=== PATIENT | female | born 2000 | race Caucasian/White ===

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

== ENCOUNTER 2021-01-19 18:15 | Emergency (ER) | payer OTHER, MEDICAID ==
[~2021-01-19] VITALS: Ht 160 cm; Wt 52.2 kg
[~2021-01-19 18:15] MED LIST: ALBUTEROL2.5 MG/31 INH; CLARITIN10 MG PO; MEDROLDOSEPACK PO; PROAIR HFA8.5 GM INH; SYMBICORT80 MCG/4.1 INH
[2021-01-19 18:42] LABS: URINE BILIRUBIN NEGATIVE (Negative); URINE BLOOD 1+ (Negative); URINE CLARITY CLEAR; URINE COLOR YELLOW; URINE GLUCOSE-RANDOM NEGATIVE (Negative); URINE KETONES NEGATIVE (Negative); URINE LEUKOCYTES-REFLEX NEGATIVE (Negative); URINE NITRITE-REFLEX NEGATIVE (Negative); URINE PROTEIN NEGATIVE (Negative); URINE SPECIFIC GRAVITY <= 1.005 (1.005-1.030); URINE UROBILINOGEN 0.2 E.U./dl (0.2-1.0)
[2021-01-19 18:50] LABS: BACTERIA-REFLEX 1-9 Few /HPF (None Seen); CASTS None Seen /LPF (None Seen); CRYSTALS None Seen /LPF (None Seen); SQUAMOUS >10 Many /LPF (0-3)
[2021-01-19 18:51] LABS: URINE RBC 0-2 Rare /HPF (0-2); URINE WBC-REFLEX 0-5 Rare /HPF (0-5); YEAST-REFLEX Present (None Seen)
[2021-01-19 19:49] LABS: HEMATOCRIT 37.9 % (37.0-47.0); HEMOGLOBIN 12.7 gm/dL (12.0-15.0); MCH 29.1 pg (26.0-34.0); MCHC 33.6 g/dL (28.0-37.0); MCV 86.6 fL (80.0-100.0); MPV 7.8 fl. (7.2-11.1); RBC 4.37 mil/uL (4.20-5.00); RDW-CV 12.8 % (10.5-14.5); WBC 5.4 thou/uL (4.0-11.0)
[2021-01-19 19:58] LABS: CALCIUM 9.3 mg/dL (8.5-10.1); CREATININE 0.8 mg/dL (0.6-1.3); POTASSIUM 3.4 mmol/L (3.5-5.1)
[2021-01-19 20:03] LABS: ALBUMIN 4.8 g/dL (3.4-5.0); TOTAL BILIRUBIN 0.5 mg/dL (<0.1-1.0); TOTAL PROTEIN 7.6 g/dL (6.4-8.2)
[2021-01-19] MEDS ORDERED: DIFLUCAN150 MG PO (20:25)
[2021-01-19] MEDS ORDERED: CEPHALEXIN500 MG PO (20:25)
[2021-01-19 20:40] VITALS: BP 116/60
== END 2021-01-19 20:40 | disposition home or self-care (01) ==
LOC: M.ERS 18:15
PROVIDERS: Personal Emergency Response Attendant; Physician Assistant
DX: B37.3 Candidiasis of vulva and vagina (principal); R31.9 Hematuria, unspecified; J45.909 Unspecified asthma, uncomplicated; F41.9 Anxiety disorder, unspecified; Z79.51 Long term (current) use of inhaled steroids; Z79.899 Other long term (current) drug therapy; Z91.041 Radiographic dye allergy status; Z91.048 Other nonmedicinal substance allergy status